=== PATIENT | male | born 1945 | race Two or more races ===

== ENCOUNTER 2021-12-02 17:49 | Emergency (ER) | payer MEDICARE ==
[~2021-12-02] VITALS: Ht 162.6 cm; Wt 47.6 kg
[2021-12-02 17:50] VITALS: BP_SYST 161
[2021-12-02] MEDS ORDERED: cefTRIAXone 1 GM IVPB PREMIX 50 ML IV ONE (18:00)
[2021-12-02] MEDS ORDERED: NACL 0.9% 1,000 ML IV ONE ×2 (18:00)
[2021-12-02] MEDS ORDERED: LEVOFLOXACIN IN DEXTROSE 5 % 100 ML IV ONE (18:00)
[2021-12-02 18:26] LABS: BASOPHILS % (AUTO) 0.3 % (0.0-2.0); HEMATOCRIT 28.9 % (36-54); HEMOGLOBIN 9.1 g/dL (14.0-18.0); LYMPHOCYTES # (AUTO) 2.4 K/uL (1.0-5.5); LYMPHOCYTES % (AUTO) 17.5 % (20.5-51.5); MEAN CORPUSCULAR HEMOGLOBIN 21 pg (27-31); MEAN CORPUSCULAR HGB CONC 32 % (32-36); MEAN CORPUSCULAR VOLUME 67 fL (79.0-98.0); MONOCYTES # (AUTO) 0.5 K/uL (0.0-1.0); MONOCYTES % (AUTO) 3.7 % (1.7-9.3); NEUTROPHILS # (AUTO) 10.8 K/uL (1.8-7.7); NEUTROPHILS % (AUTO) 78.5 % (40.0-70.0); RED CELL DISTRIBUTION WIDTH 18.8 % (9.0-15.0); WHITE BLOOD COUNT (AUTO) 13.8 K/uL (4.8-10.8)
[2021-12-02 18:29] LABS: PLATELET COUNT (AUTO) 763 K/uL (130-430)
[2021-12-02 18:34] LABS: ANION GAP 13 (5-15); CHLORIDE 98 mmol/L (98-107); CREATININE 1.08 mg/dL (0.55-1.30); GLUCOSE 111 mg/dL (70-99); POTASSIUM 4.3 mmol/L (3.5-5.1); SODIUM SERUM 134 mmol/L (136-145); UREA NITROGEN, BLOOD 13 mg/dL (8-21)
[2021-12-02 18:40] LABS: ALANINE AMINOTRANSFERASE 8 U/L (12-78); ALBUMIN 1.7 g/dL (3.4-4.8); ASPARTATE AMINOTRANSFERASE 30 U/L (10-37); TOTAL BILIRUBIN 0.3 mg/dL (0.0-1.0)
[2021-12-02 22:03] LABS: BILIRUBIN,URINE NEGATIVE (NEGATIVE); BLOOD, URINE TRACE (NEGATIVE); CLARITY/URINE CLEAR (CLEAR); COLOR,URINE YELLOW (YELLOW); GLUCOSE,URINE NEGATIVE (NEGATIVE); KETONES,URINE NEGATIVE (NEGATIVE); LEUKOCYTE ESTERASE ,URINE NEGATIVE (NEGATIVE); NITRITE, URINE NEGATIVE (NEGATIVE); PROTEIN URINE NEGATIVE (NEGATIVE); UROBILINOGEN,URINE 0.2 (0.2-1.0)
[2021-12-02 22:08] LABS: BACTERIA,URINE FEW /HPF (None Seen); WBC,URINE NONE SEEN /HPF (0-3)
[2021-12-02 23:55] VITALS: BP_SYST 150
== END 2021-12-03 01:15 | disposition short-term general hospital (02) ==
LOC: SED 17:49
DX: A41.9 Sepsis, unspecified organism (principal); J18.9 Pneumonia, unspecified organism; Z20.822 Contact with and (suspected) exposure to COVID-19
CPT/HCPCS: 36415; 71045; 71250; 76376; 80053; 81000; 83605; 85025; 87040; 87426; 93005; 96361; 96365; 99291; J0696; J1956; J7030

== ENCOUNTER 2022-06-14 14:50 | Emergency (ER) | payer MEDICARE ==
[~2022-06-14] VITALS: Ht 172.7 cm; Wt 45.4 kg
--- NOTE | 2022-06-14 14:58 | NUR ---
Patient to ER bed 08 to gown for evaluation. Side rails up.
--- NOTE | 2022-06-14 15:02 | NUR ---
PT STATES PAIN AROUND G TUBE, STATES HE WANTS IT OUT AND PROMISES HE WILL EAT. ALTHOUGH ACCORDING TO FAMILY, PT DID NOT EAT TODAY. PT IS ARGUING WITH FAMILY.
[2022-06-14 15:14] VITALS: BP_SYST 142
[2022-06-14] MEDS ORDERED: GASTROGRAFIN 120 ML ONE (15:36)
[2022-06-14 16:01] LABS: BASOPHILS % (AUTO) 0.5 % (0.0-2.0); EOSINOPHILS # (AUTO) 0.2 K/uL (0.0-0.4); EOSINOPHILS % (AUTO) 2.9 % (0.0-4.0); HEMATOCRIT 37.9 % (36-54); LYMPHOCYTES # (AUTO) 1.9 K/uL (1.0-5.5); LYMPHOCYTES % (AUTO) 24.4 % (20.5-51.5); MEAN CORPUSCULAR VOLUME 84 fL (79.0-98.0); MONOCYTES # (AUTO) 0.7 K/uL (0.0-1.0); MONOCYTES % (AUTO) 8.9 % (1.7-9.3); NEUTROPHILS % (AUTO) 63.3 % (40.0-70.0); PLATELET COUNT (AUTO) 363 K/uL (130-430); RED BLOOD CELL COUNT(AUTO) 4.52 MIL/uL (4.2-6.2); RED CELL DISTRIBUTION WIDTH 20.3 % (9.0-15.0); WHITE BLOOD COUNT (AUTO) 7.9 K/uL (4.8-10.8)
--- NOTE | 2022-06-14 16:01 | NUR ---
ASSISTED WITH RADIOLOGY BY GTUBE GASTROGRAFFIN GIVEN
[2022-06-14 16:24] LABS: ANION GAP 9 (5-15); CALCIUM 9.1 mg/dL (8.4-11.0); CHLORIDE 102 mmol/L (98-107); CREATININE 0.83 mg/dL (0.55-1.30); GLUCOSE 98 mg/dL (70-99); UREA NITROGEN, BLOOD 18 mg/dL (8-21)
[2022-06-14 16:33] LABS: ALANINE AMINOTRANSFERASE 30 U/L (12-78); ASPARTATE AMINOTRANSFERASE 31 U/L (10-37); TOTAL BILIRUBIN 0.4 mg/dL (0.0-1.0)
--- NOTE | 2022-06-14 17:05 | NUR ---
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 PT STATES HE STILL WANTS HIS GTUBE REMOVED SO HE CAN GET RID OF HIS ABDOMINAL PAIN.
--- NOTE | 2022-06-14 17:54 | NUR ---
Patient given written and verbal discharge instructions and verbalizes understanding. ER MD discussed with patient the results and treatment provided. Patient in stable condition. ID arm band removed. Patient educated on pain management and to follow up with PMD. Pain Scale . Opportunity for questions provided and answered. Medication side effect fact sheet provided.
[2022-06-14 17:55] VITALS: BP_SYST 137
[2022-06-14 18:24] LABS: ACETONE, SERUM NEGATIVE (NEGATIVE)
== END 2022-06-14 17:55 | disposition home or self-care (01) ==
LOC: SED 14:50
DX: K94.23 Gastrostomy malfunction (principal); R10.9 Unspecified abdominal pain; Z79.899 Other long term (current) drug therapy
CPT/HCPCS: 99284; 80053; 82009; 82550; 85025; 84484; 36415; 74240; 83605; Q9963